=== PATIENT | male | born 1970 | race Caucasian/White ===

== ENCOUNTER → 2020-06-19 | Outpatient (CLI) | payer BC, OTHER ==
[~2020-06-19] MED LIST: BUDE150T; DEPA500T OR; DEPA500T2; DEPA500T2 OR; ISOVUE-370 76% 100ML VIAL As Ordered ONE; KLON0.5T; PAXI10TA; PAXI20TA; PAXI20TA OR; QUET30TA OR; RISP1TAB OR; TRAZ100T OR; WELL100T OR
--- NOTE | 2020-06-19 13:57 | REP ---
INDICATION: CEREBRAL INFARCTION UNSPECIFIED COMPARISON: None. TECHNIQUE: Contrast enhancement dose is 100 mL of intravenous Isovue 370. Helical scanning is acquired. 2 mm axial images are re-formatted. Coronal and sagittal MPR images are generated. Coronal and sagittal MIP and oblique MPR images are generated. 3D surface rendered images are generated and viewed rotationally. FINDINGS: Preliminary digital certified prosthetist vice president radiographs are unremarkable. Median sternotomy wires visible at the bottom of the field of view. There is good opacification of the thoracic aortic arch and great vessels in the neck postcontrast. There is some pleuroparenchymal fibrosis in the left lung apex. The lung apices are otherwise clear. The transverse aorta is intact as visualized. Great vessel origins are normal. The common carotid arteries are are intact and widely patent bilaterally. Carotid bifurcations are clear. There is a tiny focal calcification along the posterior wall of the proximal ICA on the right. There is no evidence of internal carotid artery stenosis or occlusion on either side. No evidence of dissection or aneurysm is seen. No wall thickening to suggest vasculitis. The vertebral arteries are widely patent and codominant. No vertebral artery abnormality is seen. Maximum intensity projection and 3D surface rendered images show no additional abnormality. IMPRESSION: Unremarkable CT angiography of the neck with IV contrast. <Electronically signed by Praful Bettencourt > 06/19/20 [id number]
--- NOTE | 2020-06-19 14:36 | REP ---
INDICATION: CEREBRAL INFARCTION UNSPECIFIED. COMPARISON: Comparison CT study of the brain December 26, 2019.. TECHNIQUE: CT contrast dose: 100 ml of intravenous Isovue 370. CT technique: Helical scanning is acquired. 2 mm axial images are reformatted. Maximal intensity projection and multiplanar re-formation images are generated along with 3-D surface rendered color imaging which is viewed rotational. FINDINGS: Distal vertebral arteries are widely patent and codominant. Basilar artery appears normal in caliber. The posterior cerebral and superior cerebellar vessels are intact and symmetric. Encephalomalacia is seen in the left occipital lobe in the distribution of the left posterior cerebral artery as before. No vessel cutoff is seen. The distal internal carotid arteries are unremarkable bilaterally. No visible vascular calcification or atherosclerotic disease is seen. The anterior and the middle cerebral arteries are normal and symmetric. There is no evidence of wilder aneurysm. The dural sinuses appear patent. No cortical vein or other venous abnormality is observed. Maximum density projection and 3D surface rendered images show no additional abnormality. IMPRESSION: Unremarkable CT angiography of the brain. 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 <Electronically signed by Praful Bettencourt > 06/19/20 [id number]
== END ==
LOC: M RAD 12:41
PROVIDERS: ATTEND Psychiatry & Neurology Neurology
DX: I63.09 Cerebral infarction due to thrombosis of other precerebral artery (principal)
CPT/HCPCS: 70496; 70498; Q9967

== ENCOUNTER → 2021-03-10 | Outpatient (CLI) | payer BC, OTHER ==
[~2021-03-10] MED LIST changes: -ISOVUE-370 76% 100ML VIAL As Ordered ONE
--- NOTE | 2021-03-10 11:15 | REPVR ---
PROCEDURE INFORMATION: Exam: CT Head Without Contrast Exam date and time: 03/10/2021 10:35 AM Age: 50 years old Clinical indication: Other: I63.9 cerbral infract r41.1 amnesia TECHNIQUE: Imaging protocol: Computed tomography of the head without contrast. Radiation optimization: All CT scans at this facility use at least one of these dose optimization techniques: automated exposure control; mA and/or kV adjustment per patient size (includes targeted exams where dose is matched to clinical indication); or iterative reconstruction. COMPARISON: CT Head without contrast 12/26/2019 11:58 AM FINDINGS: Brain: There is no acute intracranial hemorrhage, cerebral edema, or midline shift. Chronic encephalomalacia is again noted in the left occipital lobe and posteromedial left parietal lobe. Cerebral ventricles: No hydrocephalus. Paranasal sinuses: There is no acute sinusitis. Mastoid air cells: Visualized mastoid air cells are well aerated. Orbital cavity: Unremarkable as visualized. Bones/joints: No acute fracture. Soft tissues: Unremarkable. IMPRESSION: 1. No acute abnormality. 2. Chronic findings as discussed above. Electronically signed by: Randy Mar On 03/10/2021 11:15:11 AM
== END ==
LOC: M RAD 10:26
PROVIDERS: ATTEND Psychiatry & Neurology Neurology
DX: I63.9 Cerebral infarction, unspecified (principal); R41.1 Anterograde amnesia